=== PATIENT | male | born 1990 | race Caucasian/White ===

== ENCOUNTER 2017-04-13 09:59 | Emergency (ER) | payer OTHER ==
[2017-04-13] MEDS ORDERED: KETOROLAC 30 MG/ML 1 ML VIAL IVP STA (11:11)
[2017-04-13] MEDS ORDERED: METOCLOPRAMIDE 5 MG/ML 2 ML VIAL IVP STA (11:12)
--- NOTE | 2017-04-13 11:14 | ED ---
Headache HPI - General Chief Complaint: Headache Stated Complaint: migraine Time Seen by Provider: 04/13/17 10:52 Source: RN notes reviewed Mode of arrival: ambulatory Limitations: no limitations - History of Present Illness Initial Comments: Patient is a 26-year-old male presents emergency room for migraine headache. Patient states he has had a migraine that has been going on for the past 4 days. Patient states he has missed work because of it. Patient states he took ibuprofen last night with no relief of symptoms. Patient states he's having a 9 out of 10 headache. Patient denies paresthesias. Patient denies dizziness. Patient denies changes in vision. Patient denies ear pain or ringing ears. Patient denies neck pain. Patient denies fevers or chills. Patient denies nausea or vomiting. Patient does admit to photophobia but denies phonophobia. - Related Data Home Medications Medication Instructions Recorded Confirmed Ibuprofen [Motrin] 200 mg PO Q6HR PRN 04/13/17 04/13/17 Allergies Allergy/AdvReac Type Severity Reaction Status Date / Time codeine Allergy Unknown Verified 04/13/17 10:46 Childhood Review of Systems ROS Statement: Those systems with pertinent positive or pertinent negative responses have been documented in the HPI. ROS Other: All systems not noted in ROS Statement are negative. Past Medical History Past Medical History: No Reported History History of Any Multi-Drug Resistant Organisms: None Reported Additional Past Surgical History / Comment(s): wisdom teeth removed Past Psychological History: Anxiety Smoking Status: Current every day smoker Past Alcohol Use History: Occasional Past Drug Use History: None Reported General Exam - General Exam Comments Initial Comments: Sitting in exam room, no distress. Limitations: no limitations General appearance: alert, in no apparent distress Head exam: Present: atraumatic, normocephalic, normal inspection Eye exam: Present: normal appearance ENT exam: Present: normal exam Neck exam: Present: normal inspection Respiratory exam: Present: normal lung sounds bilaterally. Absent: respiratory distress Cardiovascular Exam: Present: regular rate, normal rhythm, normal heart sounds Extremities exam: Present: normal inspection Back exam: Present: normal inspection Neurological exam: Present: alert, oriented X3, CN II-XII intact, normal gait Expanded Patient oriented to: Present: person, place, time Speech: Present: fluid speech Sensory exam: Upper Extremity Pin Prick: Normal, Lower Extremity Light Touch: Normal Motor strength exam: RUE: 5, LUE: 5, RLE: 5, LLE: 5 Eye Response: (4) open spontaneously Motor Response: (6) obeys commands Verbal Response: (5) oriented Psychiatric exam: Present: normal affect, normal mood Skin exam: Present: warm, dry, intact, normal color. Absent: rash Course Vital Signs 04/13/17 04/13/17 10:14 11:58 Temperature 98.8 F 97.4 F L Pulse Rate 81 66 Respiratory 18 16 Rate Blood Pressure 101/58 111/58 O2 Sat by Pulse 97 97 Oximetry Medical Decision Making - Medical Decision Making Patient is a 26-year-old male since Tuesday after evaluation migraine headache. Patient given fluids, Toradol and Reglan states that she is feeling a lot better. Patient discharged home. Patient advised follow-up with primary care provider. Return parameters discussed. Discussed with Dr. Romano. - Radiology Data Radiology results: report reviewed, image reviewed Disposition Clinical Impression: Headache Disposition: HOME SELF-CARE Condition: Good Instructions: Acute Headache (ED) Additional Instructions: Please follow up with primary care provider in 1-2 days. Tylenol Motrin as needed for pain. If any new symptom arises or symptoms worsen, return to ER as soon as possible. Referrals: None,Stated [Primary Care Provider] - 1-2 days Time of Disposition: 12:08
[2017-04-13 12:00] VITALS: RESP 16
--- NOTE | 2017-04-13 12:03 | CT ---
EXAMINATION TYPE: CT brain wo con DATE OF EXAM: 04/13/2017 COMPARISON: NONE HISTORY: Patient complains of migraine headache today. Patient has a history of prior migraines. CT DLP: 1106 mGycm. Automated Exposure Control for Dose Reduction was Utilized. TECHNIQUE: CT scan of the head is performed without contrast. FINDINGS: There is no acute intracranial hemorrhage, mass effect, or midline shift identified. The ventricles and sulci are within normal limits in size. Douglas-white matter differentiation is preserve d. The globes are intact and the visualized sinuses are clear. The calvarium is intact. IMPRESSION: No acute intracranial hemorrhage, mass effect, or midline shift is seen. Unremarkable st udy.
[2017-04-13 12:26] VITALS: BP 109/62; PULSE 69; TEMP 98
== END 2017-04-13 12:31 | disposition home or self-care (01) ==
LOC: EC 09:59
DX: R51 Headache (principal); F17.200 Nicotine dependence, unspecified, uncomplicated
CPT/HCPCS: 70450; 99284; 96374; 96375; J2765; J1885

== ENCOUNTER → 2018-01-06 | Outpatient (CLI) | payer BC, OTHER ==
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
== END | disposition home or self-care (01) ==
LOC: RADMRIMAIN 16:35
PROVIDERS: ATTEND Internal Medicine
DX: M71.311 Other bursal cyst, right shoulder (principal)